=== PATIENT | male | born 1975 | race Caucasian/White ===

== ENCOUNTER 2019-04-08 13:25 | Emergency (ER) | payer BC, SELFPAY ==
--- NOTE | ~2019-04-08 | XR_ITS ---
XR chest 2V DATE: 04/08/2019 14:50 INDICATION: Cough, shortness of breath, fever, body aches for 3 days TECHNIQUE: AP and lateral views COMPARISON: None FINDINGS: radiation monitor device is noted at the anterior chest wall. Heart size is within normal ran ge. No hilar or mediastinal enlargement. There is moderate bilateral hyperinflation. No pulmonary infiltrate or consolidation. No pulmonary va scular congestion or pneumothorax. There is probable chronic blunting of the right costophrenic angle. No apparent pleural effusion. IMPRESSION: Bilateral hyperinflation; no active pulmonary disease Reviewed, dictated and finalized at location A. [facility]
--- NOTE | ~2019-04-08 | CT_ITS ---
EXAMINATION: CT abdomen pelvis wo con DATE: 04/08/2019 17:13 INDICATION: Fever, nausea, vomiting and lower abdominal pain. TECHNIQUE: Computed tomography (CT) of the abdomen and pelvis was performed without intravenous contr ast. Automated exposure control and iterative reconstruction technique were employed. The dose-length product was 506.52 mGy-cm. COMPARISON: None FINDINGS: Mild emphysema at the lung bases. Visualized inferior heart is normal. Atherosclerotic coronary arter y calcifications. No pericardial or pleural effusion. Liver, gallbladder, spleen, pancreas and left a drenal gland are normal. 1.8 x 1.0 cm relatively low-attenuation with measuring 13 HU, likely right a drenal adenoma. 1 mm nonobstructing stone at the interpolar region of the right kidney. Left kidney a nd bilateral ureters are normal. Bladder is normal. Bowels are normal. The appendix is not visualized . No pericecal inflammatory change to suggest acute appendicitis. No free intraperitoneal gas or flui d. No pathologically enlarged abdominal or pelvic lymphadenopathy. Periumbilical scarring likely rela anabela to prior surgery. A few small scattered bone islands in the pelvis and proximal left femur. IMPRESSION: 1. 1 mm nonobstructing right renal stone. No acute intra-abdominal/pelvic process. 2. Mild emphysema. Reviewed, dictated and finalized at location A. OF INSIGHT IMPRESSION: 1. 1 mm nonobstructing right renal stone. No acute intra-abdominal/pelvic proce ss. 2. Mild emphysema.
[2019-04-08 13:31] VITALS: BP 146/63; PULSE 111; RESP 19; TEMP 39.2; O2SAT 100
--- NOTE | 2019-04-08 14:32 | ED.URI ---
HPI - URI/Sore Throat General Chief Complaint: Upper Respiratory Infection Stated Complaint: Possible Flu Time Seen by Provider: 04/08/19 14:26 Source: patient and RN notes reviewed Mode of arrival: other Limitations: no limitations History of Present Illness HPI Narrative: Pt is a 43 y/o male who presents to the ED with c/o a fever and body aches that began (04/06/19), but he notes that his sx have not gone away. Pt has been taking Tylenol and Dayquil, but with no relief of her sx. Pt notes that he believes that he has the flu. He notes that he did not get the flu shot this year. He notes that he has not been able to keep fluids down. Pt also reports nausea, vomiting bile, abdominal pain, lower back pain, bilateral feet pain, dysuria, and tingling in his right hand, but denies a cough, sore throat, rhinorrhea, and diarrhea. MD elicited complaint: fever and other (body aches) Onset (ago): day(s) (2) Consistency: other (still present) Relieving factors: nothing Associated symptoms: abdominal pain, nausea, vomiting (bile), dysuria and other (lower back pain, bilateral feet pain, tingling in his right hand) Related Data Allergies Allergy/AdvReac Type Severity Reaction Status Date / Time acetaminophen Allergy Severe Anaphylaxis Verified 04/08/19 15:14 [From Darvocet-N] propoxyphene Allergy Severe Anaphylaxis Verified 04/08/19 15:14 [From Darvocet-N] Puksmgy-Iiu-Joe Reductase Allergy Intermediate Other Verified 04/08/19 15:14 Inhibitor Review of Systems Review of Systems: All systems reviewed & are unremarkable except as noted in HPI and below Constitutional: Constitutional: Reports body ache(s) and Reports fever(s) ENT: Denies sore throat and Denies other (rhinorrhea) Respiratory: Respiratory: Denies cough Gastrointestinal: Gastrointestinal: Reports abdominal pain, Denies diarrhea, Reports nausea and Reports vomiting (bile) Genitourinary: Genitourinary: Reports dysuria Musculoskeletal: Musculoskeletal: Reports back pain (lower) and Reports other (bilateral feet pain) Neurologic: Reports tingling (in his right hand) [facility] Past Medical History Medical History (Updated 04/08/19 @ 18:43 by Joesph Andres MD) 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 Myocardial infarction x3 Pacemaker complications Umbilical hernia Surgical History Surgical History (Updated 04/08/19 @ 15:57 by Paige Barraza) H/O umbilical hernia repair History of cardiac catheterization Social History Social History Gender identity (if verbalized by the patient): Male Exam Const: General: healthy appearing, no acute distress and well developed Nutritional Appearance: well nourished Orientation/consciousness: patient oriented x3 (alert) and Other orientation findings (Alert) Limitations: no limitations HENMT: Head: normocephalic and atraumatic Ears: external ears normal General nose exam: No nasal discharge present and no epistaxis Face and sinus: face symmetric Mouth: Yes lip normal, Yes tongue normal and Yes moist mucous membranes Throat: other (No exudate, no erythema) Eyes: Conjunctivae: conjunctivae normal Sclera: sclerae normal EOM: EOMs intact bilaterally Neck: Neck: full ROM, no lymphadenopathy and supple Thyroid: thyroid normal Chest: Chest palpation & inspection: other (old scars on chest from removing his pacemaker) Resp: Effort & Inspection: normal respiratory effort Auscultation: clear to auscultation bilaterally, no rales, no rhonchi, no wheezes and other (breath sounds equal) Cardio: Rate: regular rate Rhythm: regular rhythm Heart sounds: no gallops and no murmurs GI: Inspection: non-distended GI Palp: No abdominal tenderness and Yes Soft to palpation Auscultation: other (bowel sounds present) Back/Spine/Pelvis: Back: CVA tenderness (slight) Thoracic/Lumbar Spine: thoracic and lumbar spine normal to inspection Skin: Genera
[2019-04-08 15:04] LABS: Basophils Percent Auto 0.1 % (0.2-1.2); Hematocrit 39.4 % (42.0-52.0); Hemoglobin 12.9 g/dL (14.0-18.0); Immature Granulocyte Absolute 0.01 K/mm3 (0.00-0.031); Immature Granulocyte Percent A 0.1 % (0-0.5); Lymphocytes Absolute Auto 1.25 K/mm3 (0.9-3.2); Mean Corpuscular HGB Conc 32.7 g/dl (32-36); Mean Corpuscular Hemoglobin 29.3 pg (26-34); Mean Corpuscular Volume 89.5 fl (80-100); Mean Platelet Volume 10.1 fl (7.4-10.4); Monocytes Absolute Auto 1.3 K/mm3 (0.1-0.6); Monocytes Percent Auto 17.3 % (2.6-8.5); Neutrophils Absolute Auto 4.8 K/mm3 (1.3-6.7); Neutrophils Percent Auto 65.5 % (45.5-73.1); Platelet Count Result 199 k/mm3 (150-375); Red Cell Distribution Width 12.9 % (11.5-14.5); White Blood Count 7.4 K/mm3 (4.5-10.0)
[2019-04-08 15:13] LABS: Alanine Aminotransferase 17 U/L (4-50); Alkaline Phosphatase 55 U/L (38-126); Aspartate Amino Transferase 23 U/L (17-59); Bilirubin,Total 0.4 mg/dL (0.2-1.3); Blood Urea Nitrogen 10 mg/dL (9-20); Calcium 8.8 mg/dL (8.4-10.2); Carbon Dioxide 26 mmol/L (22-30); Chloride 98 mmol/L (98-107); Estimated Glomerular Filt Rate > 60; Glucose 94 mg/dL (75-110); Potassium 3.6 mmol/L (3.4-5.0); Sodium 137 mmol/L (137-145)
[2019-04-08 15:14] LABS: Lactic Acid Reflex 0.7 mmol/L (0.7-2.1)
[2019-04-08] MEDS: ACETAMINOPHEN 500 MG TABLET 1000 MG PO (15:18)
[2019-04-08] MEDS: LACTATED RINGERS 1,000 ML 999 ML IV CONT ×2 (15:21→17:40)
[2019-04-08 18:05] LABS: Add Urine Microscopic? YES; Appearance Urine Clear (Clear); Bilirubin Urine Negative (Negative); Blood Urine Negative (Negative); Color Urine Yellow (Yellow); Glucose Urine UA Negative (Negative); Ketones Urine 2+ mg/dL (Negative); Leukocyte Esterase Ur Negative LEU/UL (Negative); Mucus Urine Few /lpf; Nitrate Urine Negative (Negative); Protein Urine Negative (Negative); RBC Urine 0-2 /hpf (0-2); Specific Grav Ur 1.013 (1.001-1.035); Squamous Epithelial Cell Urine Rare /hpf (Few); Urobilinogen Urine Negative mg/dL (<2.0); WBC Urine 0-3 /hpf
[2019-04-08 19:26] VITALS: BP 133/84; PULSE 81; RESP 16; TEMP 36.8; O2SAT 100
--- NOTE | 2019-04-12 08:57 | PC.NURSE ---
LATE ENTRY This note is being entered to document information to the patient's record. The following information was omitted on 04/08/2019 at 1740, 1 Li LR administered and end time of 1740.
== END 2019-04-08 19:27 | disposition home or self-care (01) ==
PROVIDERS: Emergency Provider Emergency Medicine
DX: B34.9 Viral infection, unspecified (principal); I25.2 Old myocardial infarction
CPT/HCPCS: 36415; 71046; 74176; 80053; 81001; 83605; 85025; 87804; 96361; 96374; 99284; A9270; J0696; J7120